=== PATIENT | male | born 2000 | race Asian ===

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

== ENCOUNTER 2020-02-20 13:58 | Outpatient (CLI) | payer OTHER | END 2020-02-20 19:51 | disposition home or self-care (01) | LOC: MRI 13:58 | DX: T84.623A Infection and inflammatory reaction due to internal fixation device of left tibia, initial encounter (principal) | CPT/HCPCS: A9576 ==

== ENCOUNTER 2020-02-27 21:08 | Emergency (ER) | payer OTHER ==
[~2020-02-27] VITALS: Ht 182.9 cm; Wt 86.2 kg
[2020-02-27 21:44] VITALS: BP 132/93; TEMP 98.9
== END 2020-02-27 21:44 | disposition home or self-care (01) ==
LOC: ED 21:08
DX: T82.838A Hemorrhage due to vascular prosthetic devices, implants and grafts, initial encounter (principal)
CPT/HCPCS: 99282